=== PATIENT | male | born 1960 | race Hispanic/Latino ===

== ENCOUNTER 2021-04-20 14:19 | Inpatient (IN) | payer OTHER ==
[2021-04-20] VITALS (10 sets, daily range): BP systolic 103–180; BP diastolic 36–59
[~2021-04-20] VITALS: Ht 167.6 cm; Wt 74.8 kg
[2021-04-20] MEDS ORDERED: ONDANSETRON HCL INJ 2MG/ML 2ML 2 MG/ML VIAL IV PRN (16:00)
[2021-04-20] MEDS ORDERED: DEXTROSE 50% SYRINGE 50 ML IV PRN (16:15)
[2021-04-20] MEDS ORDERED: DEXAMETHASONE SOD PHOS 10 MG/1 ML VIAL IV SCH (17:00)
[2021-04-20] MEDS: INSULIN REGULAR, HUMAN 100 UNIT/1 ML SQ SCH ×2 (17:20→20:47)
[2021-04-20] MEDS: CEFTRIAXONE 1 GM in SODIUM CHLORIDE 0.9% 50ML 50 ML IV SCH (17:22)
[2021-04-20] MEDS ORDERED: SODIUM CHLORIDE 0.9% 50ML 50 ML ONE (18:43)
[2021-04-20] MEDS ORDERED: IOPAMIDOL 370 MG/ML 200 ML INFUS..BTL INJ ONE (18:43)
[2021-04-20] MEDS ORDERED: REMDESIVIR 200MG 200 MG in SODIUM CHLORIDE 0.9% 100 ML IV ONE (19:00)
[2021-04-20] MEDS: HEPARIN SOD (PORCINE) 5,000 UNIT/ML VIAL SC SCH (20:45)
[2021-04-21] VITALS (27 sets, daily range): BP systolic 130–193; BP diastolic 33–91
[2021-04-21 05:03] LABS: BASOPHILS % 0.2 % (0.0-1.0); LYMPHOCYTES # (AUTO) 0.6 (1.0-3.2); LYMPHOCYTES % 13.5 % (18.0-39.1); MEAN CORPUSCULAR HEMOGLOBIN 28.1 pg (28-32); MEAN CORPUSCULAR VOLUME 87.9 fL (81-99); MONOCYTES # (AUTO) 0.3 (0.2-0.8); MONOCYTES % 7.1 % (4.4-11.3); NEUTROPHILS # (AUTO) 3.2 (2.1-6.9); NEUTROPHILS % 78.5 % (38.7-80.0); PLATELET COUNT 221 x10e3/uL (140-360); RED BLOOD COUNT 2.31 x10e6/uL (4.3-5.7)
[2021-04-21 05:13] LABS: INR 1.1; PROTHROMBIN TIME 15.1 seconds (11.9-14.5)
[2021-04-21 05:14] LABS: PARTIAL THROMBOPLASTIN TIME 43.2 seconds (23.8-35.5)
[2021-04-21 05:16] LABS: HEMATOCRIT 20.3 % (38.2-49.6); HEMOGLOBIN 6.5 g/dL (14.0-18.0)
[2021-04-21 05:34] LABS: ANION GAP 21.3 mmol/L (8-16); CALCIUM 7.1 mg/dL (8.4-10.2); CREATININE, SERUM 9.51 mg/dL (0.72-1.25); POTASSIUM 4.3 mmol/L (3.5-5.1)
[2021-04-21] MEDS: HYDRALAZINE HCL 20 MG/ML VIAL IV PRN ×3 (05:51→14:48)
[2021-04-21] MEDS ORDERED: SODIUM CHLORIDE 0.9% 250ML 250 ML IV ONE (06:45)
[2021-04-21] MEDS: DEXAMETHASONE SOD PHOS 10 MG/1 ML VIAL IV SCH (08:38)
[2021-04-21] MEDS: CEFTRIAXONE 1 GM in SODIUM CHLORIDE 0.9% 50ML 50 ML IV SCH (08:38)
[2021-04-21] MEDS: ASPIRIN 325 MG TAB EC PO SCH (08:39)
[2021-04-21] MEDS: HYDRALAZINE HCL 25 MG TAB PO SCH ×3 (08:39→20:18)
[2021-04-21] MEDS: PANTOPRAZOLE SOD 40 MG TABEC PO SCH (08:40)
[2021-04-21] MEDS: HEPARIN SOD (PORCINE) 5,000 UNIT/ML VIAL SC SCH ×2 (09:09→20:19)
[2021-04-21] MEDS: INSULIN REGULAR, HUMAN 100 UNIT/1 ML SQ SCH ×4 (09:09→20:19)
[2021-04-21] MEDS ORDERED: SODIUM CHLORIDE 0.9% 250ML 0 ML ONE (09:38)
[2021-04-21] MEDS: CARVEDILOL 12.5 MG TAB PO SCH ×2 (10:12→16:26)
[2021-04-21] MEDS ORDERED: CARVEDILOL12.5 MG PO (12:37)
[2021-04-21] MEDS ORDERED: ATORVASTATIN CA20 MG PO (12:37)
[2021-04-21] MEDS ORDERED: ALPRAZOLAM0.25 M1 PO (12:37)
[2021-04-21] MEDS ORDERED: DIALYVITE 8000.8 M1 (12:37)
[2021-04-21] MEDS ORDERED: PANTOPRAZOLE SO20 MG PO (12:37)
[2021-04-21] MEDS ORDERED: HUMULIN 70100 UNIT/1 SC (12:37)
[2021-04-21] MEDS ORDERED: FEROSUL325 MG PO (12:37)
[2021-04-21] MEDS ORDERED: ASPIRIN CHEW81 MG PO (12:37)
[2021-04-21] MEDS ORDERED: FLOMAX0.4 MG PO (12:37)
[2021-04-21] MEDS ORDERED: HYDRALAZINE HCL10 MG PO (12:37)
[2021-04-21] MEDS ORDERED: CLONIDINE HCL0.1 MG PO (12:37)
[2021-04-21] MEDS ORDERED: NIFEDIPINE ER60 M1 PO (12:37)
[2021-04-21] MEDS ORDERED: ULTRAM50 MG PO (12:37)
[2021-04-21] MEDS ORDERED: SODIUM BICARBO650 MG PO (12:37)
[2021-04-21] MEDS ORDERED: CALCITRIOL0.25 MCG PO (12:37)
[2021-04-21] MEDS ORDERED: FUROSEMIDE40 MG PO (12:37)
[2021-04-21] MEDS ORDERED: CLOPIDOGREL75 MG PO (12:37)
[2021-04-21] MEDS ORDERED: NIFEDIPINE CR 30 MG TAB PO ONE (13:15)
[2021-04-21 16:00] LABS: ABG HCO3 17 mmol/L (22-26); ABG PCO2 29 mmHg (35-45); ABG PH 7.37 (7.35-7.45); ABG PO2 205 mmHg (80-105); ABG TCO2 17
[2021-04-21] MEDS ORDERED: SODIUM CHLORIDE 0.9% 250ML 250 ML ONE (19:50)
[2021-04-21] MEDS: REMDESIVIR 100MG 100 MG in SODIUM CHLORIDE 0.9% 100 ML IV SCH (19:56)
[2021-04-22] VITALS (25 sets, daily range): BP systolic 113–179; BP diastolic 37–112
[2021-04-22] MEDS: HYDRALAZINE HCL 20 MG/ML VIAL IV PRN (04:14)
[2021-04-22] MEDS: INSULIN REGULAR, HUMAN 100 UNIT/1 ML SQ SCH ×4 (08:00→21:45)
[2021-04-22] MEDS: ASPIRIN 325 MG TAB EC PO SCH (08:02)
[2021-04-22] MEDS: CEFTRIAXONE 1 GM in SODIUM CHLORIDE 0.9% 50ML 50 ML IV SCH (08:02)
[2021-04-22] MEDS: HYDRALAZINE HCL 25 MG TAB PO SCH ×3 (08:02→21:45)
[2021-04-22] MEDS: DEXAMETHASONE SOD PHOS 10 MG/1 ML VIAL IV SCH (08:02)
[2021-04-22] MEDS: CARVEDILOL 12.5 MG TAB PO SCH ×2 (08:05→16:10)
[2021-04-22] MEDS: PANTOPRAZOLE SOD 40 MG TABEC PO SCH (08:05)
[2021-04-22] MEDS: HEPARIN SOD (PORCINE) 5,000 UNIT/ML VIAL SC SCH ×2 (08:11→21:45)
[2021-04-22] MEDS ORDERED: NIFEDIPINE CR 30 MG TAB PO SCH (09:00)
[2021-04-22 09:13] LABS: BASOPHILS % 0.2 % (0.0-1.0); HEMATOCRIT 27.8 % (38.2-49.6); HEMOGLOBIN 8.7 g/dL (14.0-18.0); LYMPHOCYTES # (AUTO) 0.6 (1.0-3.2); MEAN CORPUSCULAR HEMOGLOBIN 28.5 pg (28-32); MEAN CORPUSCULAR HGB CONC 31.3 g/dL (31-35); MEAN CORPUSCULAR VOLUME 91.1 fL (81-99); MONOCYTES # (AUTO) 0.3 (0.2-0.8); MONOCYTES % 5.3 % (4.4-11.3); NEUTROPHILS # (AUTO) 3.8 (2.1-6.9); NEUTROPHILS % 80.9 % (38.7-80.0); PLATELET COUNT 200 x10e3/uL (140-360); RED BLOOD COUNT 3.05 x10e6/uL (4.3-5.7); RED CELL DISTRIBUTION WIDTH 15.4 % (11.7-14.4)
[2021-04-22 09:33] LABS: ALBUMIN 2.5 g/dL (3.5-5.0); ALBUMIN/GLOBULIN RATIO 0.7 (0.8-2.0); ANION GAP 21.9 mmol/L (8-16); CREATININE, SERUM 9.5 mg/dL (0.72-1.25); POTASSIUM 3.9 mmol/L (3.5-5.1)
[2021-04-22 09:36] LABS: CALCIUM 6.8 mg/dL (8.4-10.2)
[2021-04-22] MEDS: CALCIUM CARBONATE 500 MG CHEWABLE TABS PO SCH ×2 (15:42→21:45)
[2021-04-22] MEDS ORDERED: EPOETIN ALFA-EPBX 10,000 UNIT/ML VIAL SC SCH (16:00)
[2021-04-22] MEDS: REMDESIVIR 100MG 100 MG in SODIUM CHLORIDE 0.9% 100 ML IV SCH (18:12)
[2021-04-23] VITALS (25 sets, daily range): BP systolic 83–195; BP diastolic 32–90
[2021-04-23 05:05] LABS: HEMATOCRIT 28.9 % (38.2-49.6); HEMOGLOBIN 9.1 g/dL (14.0-18.0); LYMPHOCYTES # (AUTO) 0.9 (1.0-3.2); LYMPHOCYTES % 18.1 % (18.0-39.1); MEAN CORPUSCULAR HEMOGLOBIN 28.3 pg (28-32); MEAN CORPUSCULAR HGB CONC 31.5 g/dL (31-35); MEAN CORPUSCULAR VOLUME 89.8 fL (81-99); MONOCYTES # (AUTO) 0.5 (0.2-0.8); MONOCYTES % 9.9 % (4.4-11.3); NEUTROPHILS # (AUTO) 3.4 (2.1-6.9); PLATELET COUNT 187 x10e3/uL (140-360); RED BLOOD COUNT 3.22 x10e6/uL (4.3-5.7)
[2021-04-23] MEDS: HYDRALAZINE HCL 20 MG/ML VIAL IV PRN ×2 (05:10→13:47)
[2021-04-23 05:22] LABS: ALBUMIN 2.6 g/dL (3.5-5.0); ALBUMIN/GLOBULIN RATIO 0.7 (0.8-2.0); ANION GAP 24.6 mmol/L (8-16); CREATININE, SERUM 9.28 mg/dL (0.72-1.25); POTASSIUM 3.6 mmol/L (3.5-5.1)
[2021-04-23] MEDS: INSULIN REGULAR, HUMAN 100 UNIT/1 ML SQ SCH ×4 (08:14→21:50)
[2021-04-23] MEDS: PANTOPRAZOLE SOD 40 MG TABEC PO SCH (08:21)
[2021-04-23] MEDS: NIFEDIPINE CR 30 MG TAB PO SCH (08:21)
[2021-04-23] MEDS: CALCIUM CARBONATE 500 MG CHEWABLE TABS PO SCH ×3 (08:21→21:48)
[2021-04-23] MEDS: ASPIRIN 325 MG TAB EC PO SCH (08:22)
[2021-04-23] MEDS: HYDRALAZINE HCL 25 MG TAB PO SCH (08:22)
[2021-04-23] MEDS: CARVEDILOL 12.5 MG TAB PO SCH ×2 (08:22→16:10)
[2021-04-23] MEDS: CEFTRIAXONE 1 GM in SODIUM CHLORIDE 0.9% 50ML 50 ML IV SCH (08:22)
[2021-04-23] MEDS: DEXAMETHASONE SOD PHOS 10 MG/1 ML VIAL IV SCH (08:22)
[2021-04-23] MEDS: HEPARIN SOD (PORCINE) 5,000 UNIT/ML VIAL SC SCH ×2 (08:23→21:50)
[2021-04-23] MEDS: HYDRALAZINE HCL 100 MG TABLET PO SCH ×2 (16:09→21:48)
[2021-04-23] MEDS: REMDESIVIR 100MG 100 MG in SODIUM CHLORIDE 0.9% 100 ML IV SCH (18:10)
[2021-04-24] VITALS (13 sets, daily range): BP systolic 113–177; BP diastolic 24–86
[2021-04-24 05:01] LABS: HEMATOCRIT 28.3 % (38.2-49.6); HEMOGLOBIN 9.1 g/dL (14.0-18.0); LYMPHOCYTES # (AUTO) 1.1 (1.0-3.2); LYMPHOCYTES % 25.3 % (18.0-39.1); MEAN CORPUSCULAR HEMOGLOBIN 28.3 pg (28-32); MEAN CORPUSCULAR HGB CONC 32.2 g/dL (31-35); MEAN CORPUSCULAR VOLUME 87.9 fL (81-99); MONOCYTES # (AUTO) 0.4 (0.2-0.8); MONOCYTES % 9.5 % (4.4-11.3); NEUTROPHILS # (AUTO) 2.8 (2.1-6.9); NEUTROPHILS % 64.1 % (38.7-80.0); PLATELET COUNT 187 x10e3/uL (140-360); RED BLOOD COUNT 3.22 x10e6/uL (4.3-5.7); RED CELL DISTRIBUTION WIDTH 15.1 % (11.7-14.4)
[2021-04-24 05:23] LABS: ALBUMIN 2.6 g/dL (3.5-5.0); ALBUMIN/GLOBULIN RATIO 0.7 (0.8-2.0); ANION GAP 24.3 mmol/L (8-16); CALCIUM 7.2 mg/dL (8.4-10.2); CREATININE, SERUM 9.69 mg/dL (0.72-1.25); POTASSIUM 3.3 mmol/L (3.5-5.1)
[2021-04-24] MEDS: INSULIN REGULAR, HUMAN 100 UNIT/1 ML SQ SCH ×4 (08:20→20:20)
[2021-04-24] MEDS: DEXAMETHASONE SOD PHOS 10 MG/1 ML VIAL IV SCH (09:14)
[2021-04-24] MEDS: CEFTRIAXONE 1 GM in SODIUM CHLORIDE 0.9% 50ML 50 ML IV SCH (09:14)
[2021-04-24] MEDS: HYDRALAZINE HCL 100 MG TABLET PO SCH ×3 (09:14→20:19)
[2021-04-24] MEDS: ASPIRIN 325 MG TAB EC PO SCH (09:14)
[2021-04-24] MEDS: CARVEDILOL 12.5 MG TAB PO SCH ×2 (09:14→16:33)
[2021-04-24] MEDS: NIFEDIPINE CR 30 MG TAB PO SCH (09:15)
[2021-04-24] MEDS: CALCIUM CARBONATE 500 MG CHEWABLE TABS PO SCH ×3 (09:15→20:19)
[2021-04-24] MEDS: HEPARIN SOD (PORCINE) 5,000 UNIT/ML VIAL SC SCH ×2 (09:18→20:20)
[2021-04-24] MEDS: PANTOPRAZOLE SOD 40 MG TABEC PO SCH (09:22)
[2021-04-24] MEDS ORDERED: POTASSIUM CHLORIDE 10MEQ EA PO ONE (11:45)
[2021-04-24] MEDS: HYDRALAZINE HCL 20 MG/ML VIAL IV PRN (11:49)
[2021-04-24] MEDS: REMDESIVIR 100MG 100 MG in SODIUM CHLORIDE 0.9% 100 ML IV SCH (18:15)
[2021-04-24] MEDS ORDERED: SODIUM CHLORIDE 0.9% 250ML 250 ML ONE (18:25)
[2021-04-25] VITALS: BP 142/48
[2021-04-25 04:00] VITALS: BP 135/59
[2021-04-25 07:56] VITALS: BP 111/61
[2021-04-25 08:24] VITALS: BP 111/61
[2021-04-25] MEDS: HYDRALAZINE HCL 100 MG TABLET PO SCH (09:00)
[2021-04-25] MEDS: DEXAMETHASONE SOD PHOS 10 MG/1 ML VIAL IV SCH (09:15)
[2021-04-25] MEDS: ASPIRIN 325 MG TAB EC PO SCH (09:15)
[2021-04-25] MEDS: CALCIUM CARBONATE 500 MG CHEWABLE TABS PO SCH (09:16)
[2021-04-25] MEDS: CARVEDILOL 12.5 MG TAB PO SCH (09:16)
[2021-04-25] MEDS: NIFEDIPINE CR 30 MG TAB PO SCH (09:16)
[2021-04-25] MEDS: PANTOPRAZOLE SOD 40 MG TABEC PO SCH (09:16)
[2021-04-25] MEDS: INSULIN REGULAR, HUMAN 100 UNIT/1 ML SQ SCH ×2 (09:18→11:30)
[2021-04-25] MEDS: HEPARIN SOD (PORCINE) 5,000 UNIT/ML VIAL SC SCH (09:18)
[2021-04-25] MEDS ORDERED: HYDRALAZINE HC100 MG PO (10:28)
[2021-04-25] MEDS ORDERED: ASPIRIN ENTERI325 MG PO (10:28)
[2021-04-25] MEDS ORDERED: SODIUM BICARBO650 MG PO (10:28)
[2021-04-25] MEDS ORDERED: Calcium Carbonate 500MG Chew PO (10:28)
[2021-04-25] MEDS ORDERED: DECADRON4 M1 PO (10:30)
[2021-04-25 11:42] VITALS: BP 110/58
== END 2021-04-25 12:55 | disposition home or self-care (01) | DRG 177 ==
LOC: ICU 15:19 → MED/SURG3 04-24 15:00
PROVIDERS: ADMIT Internal Medicine; ATTEND Internal Medicine
PROC: 8E0ZXY6 Isolation (ICD-10-PCS; principal; 2021-04-20)
PROC: XW043E5 Introduction of Remdesivir Anti-infective into Central Vein, Percutaneous Approach, New Technology Group 5 (ICD-10-PCS; 2021-04-20)
PROC: 5A0935A Assistance with Respiratory Ventilation, Less than 24 Consecutive Hours, High Flow/Velocity Cannula (ICD-10-PCS; 2021-04-20)
PROC: 30233N1 Transfusion of Nonautologous Red Blood Cells into Peripheral Vein, Percutaneous Approach (ICD-10-PCS; 2021-04-21)
DX: U07.1 COVID-19 (principal); J12.82 Pneumonia due to coronavirus disease 2019; J96.01 Acute respiratory failure with hypoxia; N18.6 End stage renal disease; I12.0 Hypertensive chronic kidney disease with stage 5 chronic kidney disease or end stage renal disease; E11.22 Type 2 diabetes mellitus with diabetic chronic kidney disease; Z99.2 Dependence on renal dialysis; Z79.899 Other long term (current) drug therapy; D63.8 Anemia in other chronic diseases classified elsewhere; H54.61 Unqualified visual loss, right eye, normal vision left eye; Z87.11 Personal history of peptic ulcer disease; E11.51 Type 2 diabetes mellitus with diabetic peripheral angiopathy without gangrene; D63.1 Anemia in chronic kidney disease; D50.0 Iron deficiency anemia secondary to blood loss (chronic); Z89.022 Acquired absence of left finger(s); Z89.431 Acquired absence of right foot
CPT/HCPCS: 36415; 36600; 71045; 71260; 76604; 80048; 80053; 82805; 82948; 85025; 85610; 85730; 86850; 86900; 86920; 93005; 93306; 94799; 96372; J0360; J0456; J0696; J1100; J1644; J1817; J7050; P9016; Q9967